=== PATIENT | female | born 2000 | race Caucasian/White ===

== ENCOUNTER 2019-03-19 08:40 | Emergency (ER) | payer OTHER ==
--- NOTE | 2019-03-19 08:53 | ED Physician Documentation ---
History of Present Illness - Stated complaint Stated Complaint: RT SIDE ABD PX N/V/D - Chief complaint Chief Complaint: Abd Pain - History obtained from History obtained from: Patient - Additonal information Additional information: Patient is a previously healthy 18-year-old female presenting with several days of lower and right-sided abdominal pain associated with nausea and vomiting. Patient also reports mild diarrhea. Patient denies fever, urinary changes, new vaginal bleeding or discharge, as well as any vaginal pain. Patient's last menstrual period was normal for her in about 1 month ago. No other improving or worsening factors noted. Review of Systems Constitutional: denies: Fever GI: reports: Abdominal Pain, Nausea, Vomiting, Diarrhea : denies: Dysuria PD PAST MEDICAL HISTORY - Past Medical History Past Medical History: Yes Psych: Depression - Past Surgical History Past Surgical History: No - Allergies Allergies/Adverse Reactions: Allergies Allergy/AdvReac Type Severity Reaction Status Date / Time No Known Drug Allergies Allergy Verified 03/19/19 08:51 PD ED PE NORMAL - Vitals Vital signs reviewed: Yes - General General: Alert and oriented X 3, No acute distress, Well developed/nourished (Tearful, anxious about IV placement) - HEENT HEENT: Atraumatic, Moist mucous membranes, Pharynx benign - Cardiac Cardiac: RRR, No murmur - Respiratory Respiratory: No respiratory distress, Clear bilaterally - Abdomen Abdomen: Normal bowel sounds, Non distended. No: Non tender (Right lower quadrant tenderness consistent with McBurney's point. Negative Ogden sign. Otherwise unremarkable) - Derm Derm: Normal color, Warm and dry, No rash - Extremities Extremities: No deformity, No tenderness to palpate - Neuro Neuro: Alert and oriented X 3, No motor deficit, No sensory deficit - Psych Psych: Normal mood, Normal affect, Other (Tearful and anxious about IV placement) Results - Vitals Vitals: Vital Signs - 24 hr 03/19/19 03/19/19 03/19/19 08:50 08:55 12:10 Temperature 36.6 C Heart Rate 93 62 Respiratory 18 18 18 Rate Blood Pressure 128/79 107/74 O2 Saturation 96 98 03/19/19 13:56 Temperature Heart Rate 88 Respiratory 20 Rate Blood Pressure 114/70 O2 Saturation 98 Oxygen O2 Source Room air - Labs Labs: Laboratory Tests 03/19/19 03/19/19 03/19/19 09:02 09:02 10:45 WBC 5.1 RBC 5.08 Hgb 14.1 Hct 42.8 MCV 84.2 MCH 27.7 MCHC 32.9 RDW 14.7 Plt Count 251 MPV 8.5 Neut # (Auto) 3.6 Lymph # (Auto) 0.7 L [place] # (Auto) 0.6 Eos # (Auto) 0.1 Baso # (Auto) 0.0 Absolute Nucleated RBC 0.00 Nucleated RBC % 0.0 Sodium 138 Potassium 4.0 Chloride 105 Carbon Dioxide 22 Anion Gap 11.0 BUN 7 Creatinine 0.6 Estimated GFR (MDRD) 129 Glucose 101 H Calcium 9.4 Total Bilirubin 0.8 AST 39 ALT 36 Alkaline Phosphatase 75 Total Protein 8.3 H Albumin 4.4 Globulin 3.9 Albumin/Globulin Ratio 1.1 Lipase 28 Urine Color YELLOW Urine Clarity HAZY Urine pH 5.0 Ur Specific [place] 1.025 Urine Protein NEGATIVE Urine Glucose (UA) NEGATIVE Urine Ketones 15 H Urine Occult Blood TRACE-LYSE Urine Nitrite NEGATIVE Urine Bilirubin NEGATIVE Urine Urobilinogen 0.2 (NORMAL) Ur Leukocyte Esterase NEGATIVE Urine RBC 0-5 Urine WBC 0-3 Ur Squamous Epith Cells MANY Squamous H Urine Crystals 11-25 Ca Oxalate Urine Bacteria Many H Urine Mucus Marked Strands Ur Microscopic Review INDICATED Urine Culture Comments NOT INDICATED Urine HCG, Qual NEGATIVE PD MEDICAL DECISION MAKING - ED course Complexity details: reviewed results, re-evaluated patient, considered differential, d/w patient, d/w supply chain consultant ED course: Patient presenting with symptoms concerning for appendicitis. Have lower suspicion for gallbladder disease, pancreatitis, small bowel obstruction, diverticulitis, AAA, renal disease including UTI, but considered. Also have lower suspicion for ovarian other pelvic pathology given patient's lack of complaints to this area, no abnormal vaginal bleeding or other issues, as well as physical exam. Patient started on IV fluids and Zofran. Patient otherwise relatively comfortable did not require pain medications at this time. Patient remained n.p.o. Screening lab work and urinalysis returned relatively unremarkable including negative , no significant leukocytosis, or other concerns. CT imaging did find evidence of abnormal appendix although not acute appendicitis. Wanted to discuss possible admission for observation and further evaluation with general surgery. General surgery unable to speak immediately as he was in the operating room. Patient advised of results and recommendations as well as delay. Patient understanding. Upon discussion with general surgery, he agreed to evaluate patient and admit. Patient also amenable to this plan. Departure - Departure Disposition: [facility] DC/Xfer Clinical Impression: Abdominal pain Qualifiers: Abdominal location: right lower quadrant Qualified Code(s): R10.31 - Right lower quadrant pain
[2019-03-19] MEDS ORDERED: SODIUM CHLORIDE 0.9% 1,000 ML IV ONE ×2 (08:59→12:39)
[2019-03-19] MEDS ORDERED: ONDANSETRON 4 MG/2 ML VIAL IVP STA ×2 (09:00→16:02)
[2019-03-19 09:09] LABS: BASOPHILS % (AUTO) 0.7 %; EOSINOPHILS # (AUTO) 0.1 10^3/uL (0.0-0.7); EOSINOPHILS % (AUTO) 2.1 %; HGB - HEMOGLOBIN 14.1 g/dL (12.0-16.0); LYMPHOCYTES # (AUTO) 0.7 10^3/uL (1.5-3.5); LYMPHOCYTES % (AUTO) 14.2 %; MEAN CORPUSCULAR HEMOGLOBIN 27.7 pg (27.0-31.0); MEAN CORPUSCULAR HGB CONC 32.9 g/dL (32.0-36.0); MEAN CORPUSCULAR VOLUME 84.2 fL (81.0-99.0); MEAN PLATELET VOLUME 8.5 fL (7.9-10.8); MONOCYTES # (AUTO) 0.6 10^3/uL (0.0-1.0); MONOCYTES % (AUTO) 11.7 %; NEUTROPHILS # (AUTO) 3.6 10^3/uL (1.5-6.6); NEUTROPHILS % (AUTO) 71.3 %; PLT - PLATELET COUNT 251 10^3/uL (130-450); RED BLOOD COUNT 5.08 10^6/uL (4.20-5.40); RED CELL DISTRIBUTION WIDTH 14.7 % (12.0-15.0); WHITE BLOOD COUNT 5.1 x10^3/uL (4.8-10.8)
[2019-03-19 09:25] LABS: ALBUMIN 4.4 g/dL (3.2-5.5); ALBUMIN/GLOBULIN RATIO 1.1 (1.0-2.2); BILIRUBIN,TOTAL 0.8 mg/dL (0.2-1.0); CALCIUM 9.4 mg/dL (8.5-10.3); CREATININE 0.6 mg/dL (0.4-1.0); TOTAL PROTEIN 8.3 g/dL (6.7-8.2)
[2019-03-19 11:04] LABS: BILIRUBIN,URINE NEGATIVE (NEGATIVE); GLUCOSE, URINE (UA) NEGATIVE (NEGATIVE); KETONES,URINE (UA) 15 mg/dL (NEGATIVE); LEUKOCYTE ESTERASE, URINE NEGATIVE (NEGATIVE); NITRITE,URINE NEGATIVE (NEGATIVE); OCCULT BLOOD,URINE TRACE-LYSE (NEGATIVE); PROTEIN,URINE NEGATIVE (NEGATIVE); UROBILINOGEN,URINE 0.2 (NORMAL) E.U./dL (NORMAL)
[2019-03-19 11:10] LABS: CLARITY,URINE HAZY (CLEAR); HCG UR QUAL NEGATIVE
[2019-03-19] MEDS ORDERED: IOVERSOL 320 100 ML VIAL IVP ONE ×2 (11:46→12:38)
[2019-03-19 11:55] LABS: BACTERIA,URINE Many /HPF (None Seen); MUCUS,URINE Marked Strands; RBC,URINE 0-5 /HPF (0-5); SQUAMOUS EPITHELIAL CELL,UR MANY Squamous (<= Few)
[2019-03-19 11:56] LABS: CRYSTALS,URINE 11-25 Ca Oxalate /LPF
--- NOTE | 2019-03-19 12:39 | CT Report ---
Reason: RLQ pain, vomiting Procedure Date: 03/19/2019 Accession Number: [id number] / [id number] Procedure: CT - Abdomen/Pelvis W CPT Code: FULL RESULT: EXAM: CT ABDOMEN AND PELVIS EXAM DATE: 03/19/2019 12:00 PM. CLINICAL HISTORY: Right lower quadrant pain, vomiting. COMPARISONS: None. TECHNIQUE: Routine helical CT imaging was performed through the abdomen and pelvis. IV contrast: 100 mL of Optiray 320. Enteric contrast: No. Reconstructions: Coronal and sagittal. In accordance with CT protocol optimization, one or more of the following dose reduction techniques were utilized for this exam: automated exposure control, adjustment of mA and/or KV based on patient size, or use of iterative reconstructive technique. FINDINGS: Lung Bases: Unremarkable. Liver: Normal. No masses. Gallbladder/Bile Ducts: Unremarkable. Spleen: Normal. Pancreas: Normal. Adrenal Glands: Normal. Kidneys: Normal. No masses or hydronephrosis. Peritoneal Cavity/Bowel: Prominent subcentimeter lymph nodes are seen throughout the mesentery, best demonstrated on coronal image 24 series 5. The ascending and proximal descending colon are filled with fluid. The appendix is well visualized with a maximum caliber of 0.8 cm and filled with fluid. While there are no significant surrounding inflammatory changes, absence of fat stranding with surrounding free fluid, the mucosal outline is irregular with discontinuity of the mucosal enhancement as seen on coronal image 28 of series 5 and axial image 53 of series 3. No significant free fluid, free air or bowel obstruction. Pelvic Organs: Right adnexa contains a 2 cm cyst, see image 32 of series 5. Vasculature: No aneurysms or other significant abnormality. Bones: No significant abnormality. Other: None. IMPRESSION: Abnormal appearance of the appendix in the setting of more diffuse mesenteric lymph nodes and fluid within the ascending and descending colon. While the appendix is formally abnormal on imaging, the overall configuration favors a global process such as a viral etiology. Correlation to history, vital signs, white blood cell count and physical examination would be helpful. RADIA
[2019-03-19] MEDS ORDERED: PIPERACILLIN/TAZOBACTAM 3.375 GM in SODIUM CHLORIDE 0.9% MINIBAG 100 ML IV STA (15:28)
--- NOTE | 2019-03-19 15:30 | ED Physician Documentation ---
ED Addendum - Addendum Addendum: 03/19/19 15:29 General surgery evaluated patient in the emergency department and patient chose medical management instead of hospitalization, further monitoring, or surgical intervention. Surgeon feels this is appropriate and that she is a good candidate for such. Patient received Zosyn in the ED and started on clear liquids. She is to be sent home with Augmentin twice daily x7 days. Patient will have follow-up in the surgeon's office in the next several days. Patient prefers this plan.
--- NOTE | 2019-03-19 15:30 | ANESTHESIA ---
Pre-Anesthesia VS, & Labs - Diagnosis Appendicitis - Procedure Lap appendectomy Vital Signs: Temp Pulse Resp BP Pulse Ox 36.6 C 88 20 114/70 98 03/19/19 12:10 03/19/19 13:56 03/19/19 13:56 03/19/19 13:56 03/19/19 13:56 Height 5 ft 4 in Weight (kg) 77.111 kg Body Mass Index 29.2 - Is Patient ?: No - Lab Results Current Lab Results: Laboratory Tests 03/19/19 09:02: Sodium 138, Potassium 4.0, Chloride 105, Carbon Dioxide 22, A nion Gap 11.0, BUN 7, Creatinine 0.6, Estimated GFR (MDRD) 129, Glucose 101 H, Calcium 9.4, Total Bilirubin 0.8, AST 39, ALT 36, Alkaline Phosphatase 75, Total Protein 8.3 H, Albumin 4.4, Globulin 3.9, Albumin/Globulin Ratio 1.1, Lipase 28 03/19/19 09:02: WBC 5.1, RBC 5.08, Hgb 14.1, Hct 42.8, MCV 84.2, MCH 27.7, MCHC 32.9, RDW 14.7, Plt Count 251, MPV 8.5, Neut # (Auto) 3.6, Lymph # (Auto) 0.7 L, [place] # (Auto) 0.6, Eos # (Auto) 0.1, Baso # (Auto) 0.0, Absolute Nucleated RBC 0.00, Nucleated RBC % 0.0 Lab results reviewed: Yes Fish Bones: 03/19/19 09:02 03/19/19 09:02 Home Medications and Allergies Allergies/Adverse Reactions: Allergies Allergy/AdvReac Type Severity Reaction Status Date / Time No Known Drug Allergies Allergy Verified 03/19/19 08:51 Anes History & Medical History - Medical History Smoking Status: Never smoker Exam General: Alert, Oriented x3, Cooperative Plan Anesthesia Type: General (OR prepped and ready for laparoscopic appendectomy, pt elects to use conservative measures for treatment vs surgery at this point) Consent for Procedure(s) Verified and Reviewed: No Code Status: Attempt Resuscitation ASA classification: 2-Mild systemic disease Is this case an emergency?: Yes
--- NOTE | 2019-03-19 15:46 | CONSULTATION NOTE ---
Referring Provider Name of Referring Provider:: Dr. Burnette Consult Date: 03/19/19 Chief Complaint - Chief Complaint Chief Complaint: abd pain History of Present Illness - History Obtained From Records Reviewed: yes History obtained from: pt Exam Limitations: none - History of Present Illness HPI Comment/Other: 18 yo G0 female, LMP 30 days ago with 2 days of lower abd pain, right greater than left, associated nausea, vomiting and nonbloody diarrhea, without fever/chills, melena, BRBPR, hematemesis, previous similar sx, recent respiratory or urinary tract sx. She noted increased discomfort with activity, no anbormal vaginal discharge or bleeding, no hx PID, neg FH appendicitis or GI tumors. She was evaluated with labs which were notable for a WBC of 5K, neg UA, neg test, and an abd/pelvic CT showing mildly dilated fluid filled appendix with mucosal discontinuity and multiple subcm mesenteric lymph nodes and fluid in the ascending colon. A 2 cm right ovarian simple cyst was also noted. Findings were thought to be consistent with either early acute appendicitis or a viral syndrome. Surgical consultation was requested. History - Past Medical History Cardiovascular: reports: None Psych: reports: Depression - Family & Social History Family History Comment/Other: neg for Gi tumors, appendicitis Living arrangement: Other (working and living [place] a [place] [facility]; home is in [place]) Living Situation: With friend(s) - Substance History Use: Uses substance without health or social issues: NONE Meds/Allgy - Home Medications Home Medications: Ambulatory Orders Medication Instructions Recorded Confirmed Escitalopram [Lexapro] 20 mg PO DAILY 03/19/19 03/19/19 - Allergies Allergies/Adverse Reactions: Allergies Allergy/AdvReac Type Severity Reaction Status Date / Time No Known Drug Allergies Allergy Verified 03/19/19 08:51 Review of Systems - Constitutional Constitutional: reports: Weight loss (20 lbs over past 3 months, attributed to diet, exercise) - Respiratory Respiratory: denies: Cough, Sputum production - Gastrointestinal Gastrointestinal: reports: Abdominal pain, Diarrhea, Change in bowel habits, Nausea, Vomiting, Poor appetite. denies: Black stools, Bloody stools, Jerad blood emesis, Coffee grounds emesis - Genitourinary Genitourinary: denies: Dysuria - Musculoskeletal Musculoskeletal: denies: Back pain - Psychiatric Psychiatric: reports: Depression - Hematologic/Lymphatic Hematologic/Lymphatic: denies: Blood clots, Bleeding tendencies - All Other Systems All Other Systems: reports: Reviewed and negative Exam - Vital Signs Reviewed Vital Signs: Yes Vital Signs: Vital Signs x48h Temp Pulse Resp BP Pulse Ox 03/19/19 13:56 88 20 114/70 98 03/19/19 12:10 36.6 C 62 18 107/74 98 03/19/19 08:55 18 03/19/19 08:50 93 18 128/79 96 - Physical Exam General Appearance: positive: Alert, Mild distress Eyes Bilateral: positive: Normal inspection, No scleral icterus ENT: positive: ENT inspection nml, No signs of dehydration Neck: positive: Nml inspection, No JVD. negative: Lymphadenopathy (R), Lymphadenopathy (L) Respiratory: positive: Chest non-tender, No respiratory distress, Breath sounds nml. negative: Wheezes, Rales, Rhonchi Cardiovascular: positive: Regular rate & rhythm, No murmur, No gallop Abdomen: positive: No organomegaly, Nml bowel sounds, No distention, Tenderness (RLQ, LLQ, RUQ, maximal in RLQ with localized rebound tenderness; +Rovsing's; +psoas; neg obturator sign), Rebound. negative: Guarding, Hepatomegaly, Splenomegaly, Mass Skin: positive: Color nml, No rash, Warm, Dry. negative: Cyanosis Extremities: positive: Non-tender, No pedal edema. negative: Calf tenderness Neurologic/Psychiatric: positive: Oriented x3 Conclusion/Plan - Diagnosis Diagnosis: RLQ pain, N/V/D with abn CT of appendix; findings c/w early appenditis and/or viral syndrome. No evidence of complicated appendicitis at this time. - Plan Plan: Advised diagnostic laparoscopy and appendectomy. The alternative of medical management with antibiotic therapy was discussed and pt prefers non operative management at this time. Risks of failure to improve, worsening, improvement with subsequent relapse were discussed with pt who is comfortable with these risks and prefers them to surgical intervention at present. Therefore I recomme nd a dose of 3.375 gm of pip/suzi now and a trial of clear liquids in the ER. If tolerates liquids, then ok to send home on 7 days of Augmentin 875 BID, with f/u in my office in 3 days, and advice to return to the ER if sx worsen or unable to tolerate a liquid diet. Pt is comfortable with this plan. - Lab Results Lab results reviewed: Yes Fish Bones: 03/19/19 09:02 03/19/19 09:02 Other Lab Results: UA, urine preg neg; lft's, lipase, nl - Diagnostic Imaging Results Diagnostic Imaging Results: positive: Final report reviewed, Read independently Diagnostic Imaging Results Comments: See HPI
[2019-03-19 16:52] VITALS: BP 109/73
== END 2019-03-19 16:53 | disposition home or self-care (01) ==
LOC: ED 08:40
DX: R10.31 Right lower quadrant pain (principal); R11.2 Nausea with vomiting, unspecified; R19.7 Diarrhea, unspecified; R93.5 Abnormal findings on diagnostic imaging of other abdominal regions, including retroperitoneum
CPT/HCPCS: 36415; 74177; 80053; 81001; 81025; 83690; 85025; 96361; 96365; 96375; 99283; Q9967; 81003; 87086

== ENCOUNTER 2020-06-26 12:18 | Emergency (ER) | payer OTHER ==
[2020-06-26 12:51] LABS: BASOPHILS % (AUTO) 0.4 %; EOSINOPHILS # (AUTO) 0.2 10^3/uL (0.0-0.7); HGB - HEMOGLOBIN 13.5 g/dL (12.0-16.0); LYMPHOCYTES # (AUTO) 1.4 10^3/uL (1.5-3.5); LYMPHOCYTES % (AUTO) 20.2 %; MEAN CORPUSCULAR HEMOGLOBIN 28.8 pg (27.0-31.0); MEAN CORPUSCULAR HGB CONC 32.1 g/dL (32.0-36.0); MEAN CORPUSCULAR VOLUME 89.7 fL (81.0-99.0); MEAN PLATELET VOLUME 10.4 fL (7.9-10.8); MONOCYTES # (AUTO) 0.5 10^3/uL (0.0-1.0); MONOCYTES % (AUTO) 7.9 %; NEUTROPHILS # (AUTO) 4.6 10^3/uL (1.5-6.6); NEUTROPHILS % (AUTO) 68.2 %; PLT - PLATELET COUNT 289 10^3/uL (130-450); RED BLOOD COUNT 4.68 10^6/uL (4.20-5.40); RED CELL DISTRIBUTION WIDTH 13.8 % (12.0-15.0); WHITE BLOOD COUNT 6.7 x10^3/uL (4.8-10.8)
[2020-06-26 13:06] LABS: ALBUMIN 4.5 g/dL (3.2-5.5); ALBUMIN/GLOBULIN RATIO 1.4 (1.0-2.2); BILIRUBIN,TOTAL 0.6 mg/dL (0.2-1.0); CALCIUM 9.2 mg/dL (8.5-10.3); CREATININE 0.6 mg/dL (0.4-1.0); TOTAL PROTEIN 7.8 g/dL (6.7-8.2)
[2020-06-26 13:17] LABS: BILIRUBIN,URINE NEGATIVE (NEGATIVE); GLUCOSE, URINE (UA) NEGATIVE (NEGATIVE); KETONES,URINE (UA) NEGATIVE (NEGATIVE); LEUKOCYTE ESTERASE, URINE NEGATIVE (NEGATIVE); NITRITE,URINE NEGATIVE (NEGATIVE); OCCULT BLOOD,URINE NEGATIVE (NEGATIVE); PROTEIN,URINE NEGATIVE (NEGATIVE); UROBILINOGEN,URINE 0.2 (NORMAL) E.U./dL (NORMAL)
[2020-06-26 13:19] LABS: CLARITY,URINE CLEAR (CLEAR)
[2020-06-26 13:20] LABS: HCG UR QUAL NEGATIVE
--- NOTE | 2020-06-26 13:46 | ED Physician Documentation ---
PD HPI ABD PAIN - Stated complaint Stated Complaint: ABD PX - Chief complaint Chief Complaint: Abd Pain - History obtained from History obtained from: Patient - History of Present Illness Timing - onset: Today Timing - duration: Hours Quality: Aching Location: RLQ Worsened by: Palpation Associated symptoms: Nausea, Vomiting, Loss of appetite. No: Fever, Hematemesis, Diarrhea, Constipation, Melena, Hematochezia, Dysuria, Hematuria, Chest pain, Weight loss, Vaginal bleeding, Vaginal dc - Additional information Additional information: 19 yo F presents with RLQ abdominal pain since this AM. No fever, chills, vomiting, anorexia, diarrhea, or urinary sx. Ate toast this AM w/o difficulty. No meds attempted. States she had similar sx in the past about a year ago and CT showed a possible appendicitis at that time but inconclusive and so she was sent home on abx and sx resolved, therefore she never had her appendix removed. Review of Systems Constitutional: reports: Reviewed and negative Cardiac: reports: Reviewed and negative Respiratory: reports: Reviewed and negative GI: reports: Abdominal Pain, Nausea, Vomiting. denies: Abdominal Swelling, Constipation, Diarrhea, Hematemesis, Bloody / black stool : reports: Reviewed and negative Skin: reports: Reviewed and negative Musculoskeletal: reports: Reviewed and negative Neurologic: reports: Reviewed and negative PD PAST MEDICAL HISTORY - Past Medical History Cardiovascular: None Psych: Depression - Past Surgical History Past Surgical History: No - Present Medications Home Medications: Ambulatory Orders Medication Instructions Recorded Confirmed Amox/Clav 875/125 [Augmentin] 1 each PO Q12H #14 tablet 03/19/19 Escitalopram [Lexapro] 20 mg PO DAILY 03/19/19 03/19/19 Amox/Clav 875/125 [Augmentin] 1 each PO Q12H #10 tablet 06/26/20 Ondansetron Odt [Zofran] 4 mg TL Q6H PRN #10 tablet 06/26/20 - Allergies Allergies/Adverse Reactions: Allergies Allergy/AdvReac Type Severity Reaction Status Date / Time No Known Drug Allergies Allergy Verified 03/19/19 08:51 - Social History Does the pt smoke?: No Smoking Status: Never smoker Does the pt drink ETOH?: No Does the pt have substance abuse?: No - Immunizations Immunizations are current?: Yes PD ED PE NORMAL - Vitals Vital signs reviewed: Yes - General General: Alert and oriented X 3, No acute distress - HEENT HEENT: Atraumatic, Moist mucous membranes - Cardiac Cardiac: RRR, No murmur, No gallop, No rub - Respiratory Respiratory: No respiratory distress, Clear bilaterally - Abdomen Abdomen: Normal bowel sounds, Soft, Non distended, Other (RLQ ttp w/o guarding, no rebound, no other abd ttp) - Back Back: No CVA TTP - Derm Derm: Normal color, Warm and dry, No rash - Neuro Neuro: Alert and oriented X 3 Eye Opening: Spontaneous Motor: Obeys Commands Verbal: Oriented GCS Score: 15 - Psych Psych: Normal mood, Normal affect Results - Vitals Vitals: Vital Signs - 24 hr 06/26/20 06/26/20 06/26/20 12:25 13:41 15:16 Temperature 36.9 C 36.8 C Heart Rate 82 85 91 Respiratory 16 16 18 Rate Blood Pressure 115/70 122/65 103/68 O2 Saturation 96 99 98 06/26/20 06/26/20 16:30 17:01 Temperature 36.8 C Heart Rate 74 75 Respiratory 20 16 Rate Blood Pressure 116/81 H 122/65 O2 Saturation 98 99 Oxygen O2 Source Room air - Labs Labs: Laboratory Tests 06/26/20 06/26/20 06/26/20 12:44 12:44 13:13 WBC 6.7 RBC 4.68 Hgb 13.5 Hct 42.0 MCV 89.7 MCH 28.8 MCHC 32.1 RDW 13.8 Plt Count 289 MPV 10.4 Neut # (Auto) 4.6 Lymph # (Auto) 1.4 L [place] # (Auto) 0.5 Eos # (Auto) 0.2 Baso # (Auto) 0.0 Absolute Nucleated RBC 0.00 Nucleated RBC % 0.0 Sodium 139 Potassium 3.9 Chloride 103 Carbon Dioxide 26 Anion Gap 10.0 BUN 10 Creatinine 0.6 Estimated GFR (MDRD) 127 Glucose 94 Calcium 9.2 Total Bilirubin 0.6 AST 21 ALT 25 Alkaline Phosphatase 66 Total Protein 7.8 Albumin 4.5 Globulin 3.3 Albumin/Globulin Ratio 1.4 Lipase 28 Urine Color YELLOW Urine Clarity CLEAR Urine pH 6.0 Ur Specific [place] 1.015 Urine Protein NEGATIVE Urine Glucose (UA) NEGATIVE Urine Ketones NEGATIVE Urine Occult Blood NEGATIVE Urine Nitrite NEGATIVE Urine Bilirubin NEGATIVE Urine Urobilinogen 0.2 (NORMAL) Ur Leukocyte Esterase NEGATIVE Ur Microscopic Review NOT INDICATED Urine Culture Comments NOT INDICATED Urine HCG, Qual 06/26/20 13:13 WBC RBC Hgb Hct MCV MCH MCHC RDW Plt Count MPV Neut # (Auto) Lymph # (Auto) [place] # (Auto) Eos # (Auto) Baso # (Auto) Absolute Nucleated RBC Nucleated RBC % Sodium Potassium Chloride Carbon Dioxide Anion Gap BUN Creatinine Estimated GFR (MDRD) Glucose Calcium Total Bilirubin AST ALT Alkaline Phosphatase Total Protein Albumin Globulin Albumin/Globulin Ratio Lipase Urine Color Urine Clarity Urine pH Ur Specific [place] 1.015 Urine Protein Urine Glucose (UA) Urine Ketones Urine Occult Blood Urine Nitrite Urine Bilirubin Urine Urobilinogen Ur Leukocyte Esterase Ur Microscopic Review Urine Culture Comments Urine HCG, Qual NEGATIVE PD MEDICAL DECISION MAKING - ED course Complexity details: reviewed results, re-evaluated patient, considered dif ferential, d/w patient ED course: 19 yo F presented w/ rlq pain but no fever, vomiting, or other symptoms. Her labs are reassuring. Her CT shows possible slight increase in size of appendix but no other definitive signs of appendicitiis. I d/w Dr. Jade and recommended abx for a few days and pt to return if worsening or persistent sx. Pt agreeable to this. Reviewed return precautions in detail including anorexia, fever/chills, increased pain, vomiting, or otherwise worsening sx. Will also refer outpt to surgery as she has had similar sx in the past and therefore may benefit from removal of appendix even if not definitive signs fo appendicitis. Departure - Departure Disposition: 01 Home, Self Care Clinical Impression: Abdominal pain Qualifiers: Abdominal location: right lower quadrant Qualified Code(s): R10.31 - Right lower quadrant pain Condition: Good Instructions: Abdominal Pain Follow-Up: LESTER MIR MD [Provider Admit Priv/Credential] - Prescriptions: Amox/Clav 875/125 [Augmentin] 1 each PO Q12H #10 tablet Ondansetron Odt [Zofran] 4 mg TL Q6H PRN #10 tablet PRN Reason: Nausea / Vomiting Comments: You presented with right lower quadrant pain. Your labs were normal which is reassuring. Your CT scan of the abdomen showed possible slight enlargement of the appendix but no definitive signs of appendicitis. This may be an incidental finding or represent a very early appendicitis. We will discharge you home on antibiotics. If you have no improvement w/ the medication or if at anytime you worsen and develop increased pain, vomiting, fever, or otherwise worsening symptoms, return to the ER as it is possible you have a very early appendicitis. You may take tylenol for pain. Discharge Date/Time: 06/26/20 17:03
[2020-06-26] MEDS ORDERED: IOVERSOL 320 100 ML VIAL IVP ONE ×2 (15:34→15:49)
--- NOTE | 2020-06-26 16:07 | CT Report ---
PROCEDURE: Abdomen/Pelvis W INDICATIONS: RLQ pain r/o appy CONTRAST: IV CONTRAST: Optiray 320 ml: 100 PO CONTRAST: *NO PO CONTRAST TECHNIQUE: After the administration of IV contrast, 5 mm thick sections acquired from the diaphragms to the symp hysis. 5 mm thick coronal and sagittal reformats were acquired. For radiation dose reduction, the f ollowing was used: automated exposure control, adjustment of mA and/or kV according to patient size. COMPARISON: None. FINDINGS: Image quality: Excellent. ABDOMEN: Lung bases: Lung bases are clear. Heart size is normal. Solid organs: Liver and spleen are normal in size and enhancement. Gallbladder is within normal martines its Biliary system is non dilated. Pancreas enhances normally. No adrenal nodules. Kidneys demons trate normal size and enhancement, without hydronephrosis. Peritoneum and bowel: There is no evidence of bowel obstruction. Appendix is visualized in the right lower quadrant abdomen. Proximal appendix measures 8 mm in diameter which is minimally enlarged. No g ross appendiceal wall thickening or periappendiceal fat stranding is seen. No other area of abnormal bowel wall thickening is seen. No free fluid or free air. Nodes and vessels: No retroperitoneal or mesenteric adenopathy by size criteria. Aorta and inferior vena cava are normal in size. Miscellaneous: No ventral hernias. PELVIS: Genitourinary: Bladder wall thickness is normal. Miscellaneous: No inguinal hernias or adenopathy. Bones: No suspicious bony lesions. No vertebral body compression fractures. IMPRESSION: 1. Slight enlargement of proximal appendix without definite CT evidence of acute appendicitis. Early acute appendicitis cannot be entirely excluded. No abscess collection. No free fluid or free air. No other area of abnormal bowel wall thickening. 2. Rest of the exam is unremarkable. Reviewed by: Diego Andrade MD on 06/26/2020 4:05 PM PDT Approved by: Diego Andrade MD on 06/26/2020 4:05 PM PDT Station ID: [id number]
[2020-06-26 17:03] VITALS: BP 122/65
== END 2020-06-26 17:03 | disposition home or self-care (01) ==
LOC: ED 12:18
DX: R10.31 Right lower quadrant pain (principal)
CPT/HCPCS: 36415; 74177; 80053; 81003; 81025; 83690; 85025; 99284; Q9967; 81001; 84702; 87086

== ENCOUNTER 2020-08-01 10:00 | Outpatient (CLI) | payer OTHER ==
[2020-08-01 16:00] LABS: BILIRUBIN,URINE NEGATIVE (NEGATIVE); GLUCOSE, URINE (UA) NEGATIVE (NEGATIVE); KETONES,URINE (UA) NEGATIVE (NEGATIVE); LEUKOCYTE ESTERASE, URINE NEGATIVE (NEGATIVE); NITRITE,URINE NEGATIVE (NEGATIVE); OCCULT BLOOD,URINE NEGATIVE (NEGATIVE); PROTEIN,URINE NEGATIVE (NEGATIVE); UROBILINOGEN,URINE 0.2 (NORMAL) E.U./dL (NORMAL)
[2020-08-01 16:09] LABS: CLARITY,URINE CLEAR (CLEAR)
[2020-08-01 16:28] LABS: BACTERIA,URINE None Seen /HPF (None Seen); RBC,URINE 0-5 /HPF (0-5); SQUAMOUS EPITHELIAL CELL,UR NONE SEEN (<= Few)
== END 2020-08-01 10:01 | disposition home or self-care (01) ==
LOC: LAB.R 10:00
PROVIDERS: ATTEND Emergency Medicine
DX: R10.31 Right lower quadrant pain (principal)
CPT/HCPCS: 81001; 87086

== ENCOUNTER 2020-10-10 18:11 | Day surgery (SDC) | payer SELFPAY ==
[2020-10-10 19:16] LABS: BASOPHILS % (AUTO) 0.4 %; EOSINOPHILS # (AUTO) 0.2 10^3/uL (0.0-0.7); EOSINOPHILS % (AUTO) 2.5 %; HGB - HEMOGLOBIN 13.2 g/dL (12.0-16.0); LYMPHOCYTES # (AUTO) 1.7 10^3/uL (1.5-3.5); MEAN CORPUSCULAR HEMOGLOBIN 28.1 pg (27.0-31.0); MEAN CORPUSCULAR VOLUME 87.8 fL (81.0-99.0); MEAN PLATELET VOLUME 10.9 fL (7.9-10.8); MONOCYTES # (AUTO) 0.5 10^3/uL (0.0-1.0); MONOCYTES % (AUTO) 6.4 %; NEUTROPHILS % (AUTO) 67.3 %; PLT - PLATELET COUNT 310 10^3/uL (130-450); RED BLOOD COUNT 4.69 10^6/uL (4.20-5.40); RED CELL DISTRIBUTION WIDTH 13.4 % (12.0-15.0); WHITE BLOOD COUNT 7.5 x10^3/uL (4.8-10.8)
[2020-10-10 19:21] LABS: BILIRUBIN,URINE NEGATIVE (NEGATIVE); GLUCOSE, URINE (UA) NEGATIVE (NEGATIVE); KETONES,URINE (UA) NEGATIVE (NEGATIVE); LEUKOCYTE ESTERASE, URINE NEGATIVE (NEGATIVE); NITRITE,URINE NEGATIVE (NEGATIVE); OCCULT BLOOD,URINE NEGATIVE (NEGATIVE); PH,URINE 6.5 PH (5.0-7.5); PROTEIN,URINE NEGATIVE (NEGATIVE); UROBILINOGEN,URINE 0.2 (NORMAL) E.U./dL (NORMAL)
[2020-10-10 19:43] LABS: CLARITY,URINE CLEAR (CLEAR); HCG UR QUAL NEGATIVE
[2020-10-10] MEDS ORDERED: IOVERSOL 320 100 ML VIAL IVP ONE ×2 (19:44→20:23)
--- NOTE | 2020-10-10 19:55 | ED Physician Documentation ---
History of Present Illness - Stated complaint Stated Complaint: right sided px - Chief complaint Chief Complaint: Abd Pain - History obtained from History obtained from: Patient - History of Present Illness Timing: Yesterday Pain level max: 6 Pain level now: 5 - Additonal information Additional information: 20-year-old female presents to the emergency department the right lower quadrant abdominal pain. This is occurred twice previously. The first time was in March 2019. Had an abnormal appendix on CT scan, offered laparoscopic appendectomy, patient declined at that time and improved on antibiotics. The second time was June 2020, similar events although not offered an appendectomy at that time. She improved again on antibiotics. The pain occurred again yesterday. Subjective fever and chills last night. Nausea today, no vomiting. No diarrhea. No constipation. No vaginal bleeding or discharge. Denies any possibility of . Worse with movement, better lying still. Review of Systems Ten Systems: 10 systems reviewed and negative Constitutional: reports: Fever, Chills Nose: denies: Rhinorrhea / runny nose, Congestion GI: denies: Vomiting, Constipation, Diarrhea, Hematemesis, Bloody / black stool : denies: Dysuria, Frequency, Hesitancy, Vaginal bleeding, Irregular menses, Now EGA Skin: denies: Rash Musculoskeletal: denies: Neck pain, Back pain Neurologic: denies: Headache PD PAST MEDICAL HISTORY - Past Medical History Past Medical History: Yes Cardiovascular: None Psych: Depression - Past Surgical History Past Surgical History: No - Present Medications Home Medications: Ambulatory Orders Medication Instructions Recorded Confirmed Escitalopram Oxalate [Lexapro] 20 mg PO DAILY 10/10/20 10/10/20 - Allergies Allergies/Adverse Reactions: Allergies Allergy/AdvReac Type Severity Reaction Status Date / Time No Known Drug Allergies Allergy Verified 10/10/20 18:33 - Social History Does the pt smoke?: No Smoking Status: Never smoker Does the pt drink ETOH?: No Does the pt have substance abuse?: No - Immunizations Immunizations are current?: Yes PD ED PE NORMAL - Vitals Vital signs reviewed: Yes - General General: Alert and oriented X 3, No acute distress - HEENT HEENT: Moist mucous membranes - Neck Neck: Supple, no meningeal sign - Cardiac Cardiac: RRR, Strong equal pulses - Respiratory Respiratory: No respiratory distress, Clear bilaterally - Abdomen Abdomen: Soft, Other (Tender to palpation at McBurney's point. No rebound or guarding. Positive Rovsing sign.) - Back Back: No CVA TTP, No spinal TTP - Derm Derm: Warm and dry - Extremities Extremities: No edema, No calf tenderness / cord - Neuro Neuro: Alert and oriented X 3 - Psych Psych: Normal mood, Normal affect Results - Vitals Vitals: Vital Signs - 24 hr 10/10/20 10/10/20 10/10/20 18:22 20:36 21:39 Temperature 37.0 C 36.9 C Heart Rate 76 69 69 Heart Rate [ Brachial] Respiratory 18 18 16 Rate Blood Pressure 130/79 128/59 L 111/77 Blood Pressure [Right Brachial artery] O2 Saturation 100 99 97 10/10/20 22:00 Temperature 36.7 C Heart Rate Heart Rate [ 68 Brachial] Respiratory 18 Rate Blood Pressure Blood Pressure 111/77 [Right Brachial artery] O2 Saturation 99 Oxygen O2 Source Room air - Labs Labs: Laboratory Tests 10/10/20 10/10/20 10/10/20 18:36 18:38 19:32 WBC 7.5 RBC 4.69 Hgb 13.2 Hct 41.2 MCV 87.8 MCH 28.1 MCHC 32.0 RDW 13.4 Plt Count 310 MPV 10.9 H Neut # (Auto) 5.0 Lymph # (Auto) 1.7 Porter # (Auto) 0.5 Eos # (Auto) 0.2 Baso # (Auto) 0.0 Absolute Nucleated RBC 0.00 Nucleated RBC % 0.0 Sodium 138 Potassium 3.9 Chloride 100 L Carbon Dioxide 28 Anion Gap 10.0 BUN 9 Creatinine 0.5 Estimated GFR (MDRD) 156 Glucose 96 Calcium 9.4 Total Bilirubin 0.6 AST 23 ALT 22 Alkaline Phosphatase 74 Total Protein 7.9 Albumin 4.7 Globulin 3.2 Albumin/Globulin Ratio 1.5 Lipase 23 Urine Color YELLOW Urine Clarity CLEAR Urine pH 6.5 Ur Specific [place] 1.015 Urine Protein NEGATIVE Urine Glucose (UA) NEGATIVE Urine Ketones NEGATIVE Urine Occult Blood NEGATIVE Urine Nitrite NEGATIVE Urine Bilirubin NEGATIVE Urine Urobilinogen 0.2 (NORMAL) Ur Leukocyte Esterase NEGATIVE Ur Microscopic Review NOT INDICATED Urine Culture Comments NOT INDICATED Urine HCG, Qual NEGATIVE - Rads (name of study) CT abdomen pelvis Radiology: Prelim report reviewed, EMP read contemporaneously, See rad report PD MEDICAL DECISION MAKING - ED course Complexity details: reviewed results, re-evaluated patient, considered differential, d/w patient ED course: 20-year-old female with right lower quadrant abdominal pain. This the third time this has recurred, she does appear to have an abnormal appendix on her prior 2 CT scans, therefore I contacted Dr. Briscoe, general surgery on-call who recommends a another CT scan today. This scan does show enlargement of the proximal appendix. Her symptoms are consistent with her chronic appendicitis. Does improve with antibiotics, however recurs. Therefore Dr. Briscoe came and evaluated the patient and will plan on taking her to surgery. Zosyn given. IV fluids given. This document was made in part using voice recognition software. While efforts are made to proofread this document, sound alike and grammatical errors may occur. Slight enlargement of the proximal appendix as before, with grossly stable appearance. This is technically indeterminate and could be normal physiologic variation (especially given unchanged ap pearance since the prior study) versus early acute appendicitis. No other inflammatory changes seen. Please correlate with clinical and laboratory data. Elsewhere, no acute abnormality Departure - Departure Disposition: ED Transfer to [facility] Clinical Impression: Appendicitis Qualifiers: Appendicitis type: acute appendicitis Acute appendicitis type: with localized peritonitis Appendicitis gangrene presence: without gangrene Appendicitis perforation presence: without perforation Appendicitis abscess presence: without abscess Qualified Code(s): K35.30 - Acute appendicitis with localized peritonitis, without perforation or gangrene Condition: Stable Discharge Date/Time: 10/10/20 21:50
[2020-10-10 20:07] LABS: ALBUMIN 4.7 g/dL (3.2-5.5); ALBUMIN/GLOBULIN RATIO 1.5 (1.0-2.2); BILIRUBIN,TOTAL 0.6 mg/dL (0.2-1.0); CALCIUM 9.4 mg/dL (8.5-10.3); CREATININE 0.5 mg/dL (0.4-1.0); TOTAL PROTEIN 7.9 g/dL (6.7-8.2)
--- NOTE | 2020-10-10 20:49 | CT Report ---
PROCEDURE: Abdomen/Pelvis W INDICATIONS: RLQ pain CONTRAST: IV CONTRAST: Optiray 320 ml: 100 PO CONTRAST: *NO PO CONTRAST TECHNIQUE: After the administration of intravenous contrast, 5 mm thick sections acquired from the diaphragms to the symphysis. 5 mm thick coronal and sagittal reformats were acquired. For radiation dose reducti on, the following was used: automated exposure control, adjustment of mA and/or kV according to ashlyn ent size. COMPARISON: CT abdomen pelvis dated 06/26/2020. FINDINGS: Image quality: Excellent. ABDOMEN: Lung bases: Lung bases are clear. Heart size is normal. Solid organs: Liver and spleen are normal in size and enhancement. Gallbladder negative Biliary sy stem is non dilated. Pancreas enhances normally. No adrenal nodules. Kidneys demonstrate normal si ze and enhancement, without hydronephrosis. Peritoneum and bowel: Bowel loops demonstrate normal wall thickness and caliber. No free fluid or a ir. There is mild dilatation of the proximal appendix measuring 7 mm however this is grossly unchang ed since the prior study dated 06/26/2020. There is no definite periappendiceal fat stranding. Few non pathologically enlarged right lower quadrant and mesenteric lymph nodes are seen. Nodes and vessels: No retroperitoneal or mesenteric adenopathy by size criteria. Aorta and inferior vena cava are normal in size. Miscellaneous: No ventral hernias. PELVIS: Genitourinary: Bladder wall thickness is normal. Miscellaneous: No inguinal hernias or adenopathy. Bones: No suspicious bony lesions. No vertebral body compression fractures. IMPRESSION: Slight enlargement of the proximal appendix as before, with grossly stable appearance. This is techni andrea indeterminate and could be normal physiologic variation (especially given unchanged appearance since the prior study) versus early acute appendicitis. No other inflammatory changes seen. Please co rrelate with clinical and laboratory data. Elsewhere, no acute abnormality Reviewed by: Christiano Michel MD on 10/10/2020 8:47 PM PST Approved by: Christiano Michel MD on 10/10/2020 8:47 PM PST Station ID: [id number]
[2020-10-10] MEDS ORDERED: ONDANSETRON 4 MG/2 ML VIAL IVP PRN (20:55)
[2020-10-10] MEDS ORDERED: ACETAMINOPHEN 325 MG TABLET PO PRN (20:55)
[2020-10-10] MEDS ORDERED: PIPERACILLIN/TAZOBACTAM 3.375 GM in SODIUM CHLORIDE 0.9% MINIBAG 100 ML IV ONE (20:55)
[2020-10-10] MEDS ORDERED: HYDROmorphone 0.5 MG/0.5 ML SYRINGE IVP PRN (20:55)
[2020-10-10] MEDS: LACTATED RINGERS 1,000 ML IV SCH (21:44)
[2020-10-11] MEDS: LACTATED RINGERS 1,000 ML IV SCH ×2 (07:19→21:29)
[2020-10-11] MEDS ORDERED: PROPOFOL 200 MG/20 ML VIAL IVP ONE (11:35)
[2020-10-11] MEDS ORDERED: fentaNYL 100 MCG/2 ML VIAL ONE ×2 (11:35→12:58)
[2020-10-11] MEDS ORDERED: LIDOCAINE-MPF 2% 5 ML VIAL ONE (11:35)
[2020-10-11] MEDS ORDERED: MIDAZOLAM 2 MG/2 ML VIAL ONE (11:35)
[2020-10-11] MEDS ORDERED: ROCURONIUM 50 MG/5 ML VIAL ONE (11:36)
[2020-10-11] MEDS ORDERED: MORPHINE 2 MG/ML CARPUJECT IVP PRN (11:51)
[2020-10-11] MEDS ORDERED: HYDROmorphone 0.5 MG/0.5 ML SYRINGE IVP PRN ×2 (11:51→13:53)
[2020-10-11] MEDS ORDERED: ePHEDrine 50 MG/ML VIAL IVP PRN (11:51)
[2020-10-11] MEDS ORDERED: NALOXONE 0.4 MG/ML VIAL IVP PRN (11:51)
[2020-10-11] MEDS ORDERED: fentaNYL 100 MCG/2 ML VIAL IVP PRN (11:51)
[2020-10-11] MEDS ORDERED: ONDANSETRON 4 MG/2 ML VIAL IVP PRN ×2 (11:51→13:53)
[2020-10-11] MEDS ORDERED: METOCLOPRAMIDE 10 MG/2 ML VIAL IVP PRN (11:51)
[2020-10-11] MEDS ORDERED: ATROPINE ABBOJECT 1 MG/10 ML SYRINGE IVP PRN (11:51)
--- NOTE | 2020-10-11 11:51 | ANESTHESIA ---
Pre-Anesthesia VS, & Labs - Diagnosis acute appendicitis - Procedure Laparoscopic appendectomy Vital Signs: Temp Pulse Resp BP Pulse Ox 36.5 C 65 16 94/48 L 97 10/11/20 07:42 10/11/20 07:42 10/11/20 07:42 10/11/20 07:42 10/11/20 07:42 Height: 5 ft 4 in Weight (kg): 81.193 kg Body Mass Index: 30.7 BMI Classification: Obese - NPO >8 hours - Is Patient ?: No - Lab Results Current Lab Results: Laboratory Tests 10/10/20 19:32: Sodium 138, Potassium 3.9, Chloride 100 L, Carbon Dioxide 28, Anion Gap 10.0, BUN 9, Creatinine 0.5, Estimated GFR (MDRD) 156, Glucose 96, Calcium 9.4, Total Bilirubin 0.6, AST 23, ALT 22, Alkaline Phosphatase 74, Total Protein 7.9, Albumin 4.7, Globulin 3.2, Albumin/Globulin Ratio 1.5, Lipase 23 10/10/20 18:36: WBC 7.5, RBC 4.69, Hgb 13.2, Hct 41.2, MCV 87.8, MCH 28.1, MCHC 32.0, RDW 13.4, Plt Count 310, MPV 10.9 H, Neut # (Auto) 5.0, Lymph # (Auto) 1.7, Pierce # (Auto) 0.5, Eos # (Auto) 0.2, Baso # (Auto) 0.0, Absolute Nucleated RBC 0.00, Nucleated RBC % 0.0 Lab results reviewed: Yes Fish Bones: 10/10/20 18:36 10/10/20 19:32 Home Medications and Allergies Home Medications: Ambulatory Orders Escitalopram Oxalate [Lexapro] 20 mg PO DAILY 10/10/20 Active Medications Acetaminophen (Acetaminophen 325 Mg Tablet) 650 mg PO Q6H PRN PRN Reason: Pain or Fever > 38C (100.4F) Last Admin: 10/11/20 08:06 Dose: 650 mg Documented by: Hydromorphone HCl (Hydromorphone 0.5 Mg/0.5 Ml Syringe) 0.5 mg IVP Q2H PRN PRN Reason: PAIN Last Admin: 10/10/20 21:12 Dose: 0.5 mg Documented by: Lactated Ringer's (Lr) 1,000 mls @ 100 mls/hr IV .Q10H DARREL Last Admin: 10/11/20 07:19 Dose: 100 mls/hr Documented by: Ondansetron HCl (Ondansetron 4 Mg/2 Ml Vial) 4 mg IVP Q6H PRN PRN Reason: Nausea / Vomiting Last Admin: 10/10/20 21:10 Dose: 4 mg Documented by: Escitalopram Oxalate [Lexapro] 20 mg PO DAILY 10/10/20 Allergies/Adverse Reactions: Allergies Allergy/AdvReac Type Severity Reaction Status Date / Time No Known Drug Allergies Allergy Verified 10/10/20 18:33 Anes History & Medical History - Anesthetic History Anesthesia Complications: reports: No previous complications Family history of Anesthesia Complications: Denies Family history of Malignant Hyperthermia: Denies - Medical History Cardiovascular: reports: None Pulmonary: reports: None Gastrointestinal: reports: None Urinary: reports: None Neuro: reports: None Musculoskeletal: reports: None Endocrine/Autoimmune: reports: None Smoking Status: Never smoker Psychosocial: reports: No issues indicated History of Cancer?: No Exam General: Alert, Oriented x3, Cooperative Dental: WNL Mouth Opening: Greater than 4 Fingerbreadths Neck Mobility: Normal Mallampati classification: II Thyromental Distance: 4-6 cm Respiratory: Lungs clear, Normal breath sounds, No respiratory distress Cardiovascular: Regular rate Neurological: Normal gait, Normal speech Mental/Cognitive Status: Alert/Oriented X3, Normal for patient Cognitive Status: Within normal limits Plan Anesthesia Type: General Consent for Procedure(s) Verified and Reviewed: Yes Code Status: Attempt Resuscitation ASA classification: 1-Healthy patient Is this case an emergency?: No
--- NOTE | 2020-10-11 11:54 | SURGERY HX AND PHYSICAL(T) ---
Surgical History & Physical - Chief Complaint/HPI Chief Complaint: Recurrent right lower quadrant pain History of Present Illness: 20-year-old female presenting for her third episode of right lower quadrant pain that historically had been included for acute appendicitis and its differential. Previous to time she was offered appendectomy but deferred. She was treated with antibiotics with ultimate improvement. She has no associated diarrhea, no sick contacts, and no chronic medical problems. She denies any family or personal history of inflammatory bowel disease. She records regular bowel movements. She has no prior abdominal surgical history. She has never undergone colonoscopy. ER called for consultation by phone to ask whether repeat imaging was indicated given the previous 2 studies revealed early of acute appendicitis however given the time interval since I recommended that we proceed. Imaging again revealed abnormality and patient was called for surgical consultation. - PMH/PSH/Social Hx Does the pt have a hx of MRSA?: No Cardiovascular: None Psychiatric: Depression Smoking Status: Never smoker Does the pt drink ETOH?: No Does the pt have substance abuse?: No - Home Meds and Allergies Home Medications: Escitalopram Oxalate [Lexapro] 20 mg PO DAILY 10/10/20 Allergies/Adverse Reactions: Allergies Allergy/AdvReac Type Severity Reaction Status Date / Time No Known Drug Allergies Allergy Verified 10/10/20 18:33 - Review of Systems Constitutional: Fatigue, Fever, Chills, Malaise Gastrointestinal: Abdominal pain - Vital Signs Heart Rate: 69 Blood Pressure: 111/77 Temperature: 36.5 C Respiratory Rate: 16 O2 Saturation: 97 Weight (kg): 81.193 kg Height: 1.63 m - Physical Exam General Appearance: positive: No acute distress, Alert Eyes Bilatera: positive: Normal inspection, PERRL, EOMI ENT: positive: ENT inspection nml Neck: positive: Nml inspection Respiratory: positive: Chest non-tender, No respiratory distress, Breath sounds nml. negative: Wheezes, Rales, Rhonchi Cardiovascular: positive: Regular rate & rhythm Abdomen: positive: No distention, Tenderness. negative: Guarding, Rebound Back: positive: Nml inspection Extremities: positive: Non-tender, Full ROM, Nml appearance Neurologic/Psychiatric: positive: Oriented x3, CN's nml (2-12), Motor nml, Sensation nml, Mood/affect nml - Patient Review Patient Review: Problems were reviewed with the patient during this visit. Medications were reviewed with the patient during this visit. Allergies were reviewed this patient during this visit. Pertinent Tests Reviewed: All pertitent test for this patient were reviewed. - Assessment & Plan Assessment and Plan: 20-year-old female presenting with acute appendicitis with no comorbid states. No signs of inflammatory bowel disease. Recurrent presentation; this is her third visit to the emergency room with imaging similar as per above. CT imaging consistent with early acute appendicitis. Patient has deferred operative intervention historically favoring antibiotics, however extensive discussion given the persistence and episodic nature of her symptomatology together with imaging findings has convinced her that proceeding with appendectomy will at the least remove this from future differential and optimistically address her chronic recurrent abdominal pain. Thus plan going forward is as follows: 1. Bowel rest, IV fluid resuscitation, IV antibiotics. 2. Planned diagnostic laparoscopy, laparoscopic appendectomy, other indicated procedures. Patient counseled of the risk associated with operative intervention including but not limited to conversion to open procedure, injury to local structures, and anesthesia risks of heart attack, stroke, . 3. Postoperative care under observation status with continued IV antibiotics. CT abdomen pelvis impression: Slight enlargement of the proximal appendix as before, with grossly stable appearance. This is technically indeterminate and could be normal physiologic variation (especially given unchanged appearance since the prior study) versus early acute appendicitis. No other inflammatory changes seen. Please correlate with clinical and laboratory data. Elsewhere no acute abnormality.
[2020-10-11] MEDS ORDERED: BUPIVACAINE 0.5% PF 30 ML VIAL ONE (12:00)
[2020-10-11] MEDS ORDERED: LACTATED RINGERS 1,000 ML IV SCH (12:00)
[2020-10-11] MEDS ORDERED: LIDOCAINE 2%-EPI 1:100000 20 ML MDV ONE (12:00)
[2020-10-11] MEDS ORDERED: BUPIVACAINE 0.5% PF 30 ML VIAL INFIL ONE ×2 (12:04→13:23)
[2020-10-11] MEDS ORDERED: LIDOCAINE 2%-EPI 1:100000 20 ML MDV SUBQ ONE ×2 (12:06→13:23)
[2020-10-11] MEDS ORDERED: GLYCOPYRROLATE 1 MG/5 ML VIAL ONE (12:30)
[2020-10-11] MEDS ORDERED: DEXAMETHASONE 4 MG/ML VIAL ONE (12:37)
[2020-10-11] MEDS ORDERED: ONDANSETRON 4 MG/2 ML VIAL ONE (12:37)
[2020-10-11] MEDS ORDERED: NEOSTIGMINE 1 MG/1 ML 10 ML MDV ONE (13:10)
[2020-10-11] MEDS ORDERED: KETOROLAC 30 MG/ML VIAL ONE (13:12)
[2020-10-11] MEDS ORDERED: LACTATED RINGERS 900 ML IV ONE (13:36)
[2020-10-11] MEDS ORDERED: oxyCODONE 5 MG TABLET PO PRN (13:53)
[2020-10-11] MEDS: PIPERACILLIN/TAZOBACTAM 3.375 GM in SODIUM CHLORIDE 0.9% MINIBAG 100 ML IV SCH ×3 (14:20→23:43)
--- NOTE | 2020-10-11 14:21 | OPERATIVE REPORT ---
Operative Report - General Procedure Date: 10/11/20 Planned Procedure: 1. Diagnostic laparoscopy 2. Laparoscopic appendectomy 3. Lysis of adhesions 4. Abdominal washout 5. Open umbilical hernia repair Pre-Op Diagnosis: Recurrent abdominal pain, early appendicitis. Procedure Performed: 1. Diagnostic laparoscopy 2. Laparoscopic appendectomy 3. Lysis of adhesions 4. Abdominal washout 5. Open umbilical hernia repair Post Op Diagnosis: Same, nonsuppurative, nonperforated early tip appendicitis with no feculent - Procedure Note Primary Surgeon: Rachna Secondary Surgeon: Ashok Anesthesia Provider: Dwain Anesthesia Technique: General ET tube, Local Pathology: Appendix Estimated Blood Loss (mL): 5 Drain/Tube Type: Other (None) Indications: See EMR/H&P. Findings: 1. Right lower quadrant adhesions 2. Tip appendicitis at the distal half of the length of the appendix 3. No suppuration, nonperforated, neither feculent nor purulent peritonitis 4. Umbilical hernia, s/p primary repair 5. Pelvic structures were normal including bilateral adnexal structures and uterus 6. Gallbladder normal as well Complications: None - Other Other Information/Narrative: OPERATIVE PROCEDURE: The patient was taken to the operating room, placed supine on the operating table. The patent was already obtained tor informed consent which was documented in the patients permanent medical record The patient was induced for general endotracheal anesthesia. The patient was positioned, off l oaded and padded at all pressure points. The patient was placed for a Downing catheter and tucked for the left arm. The patient was prepped and draped in the usual sterile fashion. The patient was called for a time out which was agreed to all in the room. Open Garcia technique was performed through umbilicus and umbilical trocar was placed. This was achieved with a circumlinear humaira-umbilical incision. This is taken through the subcutaneous fat, the umbilical stalk was dissected off and obvious hernia defect was appreciated. This was done without any injury to the umbilical skin. That benton defect was enlarged and accommodated Garcia trocar without any complication. Insufflation was commenced which the patient tolerated to 15 mmHg well with no complication. Additional trocars were placed suprapubic and left lower quadrant under direct laparoscopic vision. At this time the patient was placed in Trendelenburg position with right side up and we proceeded to isolate the cecum which was densely adhered to the sidewall. Laparoscopic adhesiolysis was performed with countertraction and the laparoscopic Bovie electrocautery without any complication or inadvertent injury. The appendix was continued to be mobilized and thereafter we achieved mobilization medially taking care to note the location of the ureter which was protected and identified throughout the entirety at this case especially given the extent of the patients inflammatory changes. The appendix was nonperforated, was not suppurative, however it was inflamed at the tip from the distal half. There was neither purulent nor feculent peritonitis. Ultimately the cecum was isolated free, and the appendix was thereafter completely mobilized off the abdominal and pelvic sidewall. At this time there were dense adhesions noted of the appendix to the ascending colon and cecum and this required careful dissection as well, both blunt and also using the suction principal librarian and laparoscopic electrocautery. At this time a [place] was used to dissect the cecal-appendiceal junction and thereafter using a ENDOGIA linear cutting stapler, the appendix was divided at the base to include portion at the cecum. The ileocecal valve was identified and protected throughout with no involvement. The right ureter was identified and protected throughout. At this time, we continued to mobilize the appendix off the ascending colon and caecum making sure there was no inadvertent injury to the ascending colon and the cecum which was again densely adhered to the appendix. This was performed with great care using blunt as well as laparoscopic electrocautery and countertraction as well as suction principal librarian and hydro-dissection and ultimately isolated and dissected free the appendix. The mesoappendix was divided using a laparoscopic Endo KENDALL linear cutting stapler 60 mm load. This was achieved without any complication hemostasis was optimized with diligent Bovie electrocautery laparoscopic. The appendix was placed into an Endo Catch bag for control of any spillage. The appendiceal staple line and mesoappendix staple line and ligature were evaluated and hemostatic. At this time, we extensively irrigated the abdomen with greater than 2 liters of sterile saline and aspirated clear. Because of the recurrent chronic symptoms, we evaluated the patient's pelvic structures and noted bilateral normal adnexal anatomy with no cysts or occult ovarian pathology. The patient had a normal uterus as well. The gallbladder was also evaluated and was without any occult pathology as well as the liver. At this time all trochars, secondary, were removed under direct laparoscopic visualization with no consequent bleeding. We removed the Garcia trocar, passed the specimen off for permanent pathology. We closed the umbilical defect with several [id number]'s of 0 Vicryl, and performed umbilicoplasty simultaneous. A mixture of quarter percent Marcaine and 2% lidocaine were instilled within the wounds. All skin and subcutaneous tissue was reapproximated with a subcuticular of 4-0 Monocryl. Wounds were dressed with Dermabond. I was present for the entirety of this operative intervention patient tolerated procedure well which is no complication. All counts were sponges needles and instruments were correct at the conclusion of this operative case.
--- NOTE | 2020-10-11 14:22 | ANESTHESIA POST OP EVALUATION ---
Anesthesia Post Eval - Post Anesthesia Eval Vitals: Last Vital Signs Temp 36.8 C 10/11/20 14:00 Pulse 72 10/11/20 14:00 Resp 14 10/11/20 14:00 BP 129/72 10/11/20 14:00 Pulse Ox 99 10/11/20 14:00 CV Function Including HR & BP: positive: Stable Pain Control: positive: Satisfactory Nausea & Vomiting: positive: Negative Mental Status: positive: Baseline Respiratory Status: Airway Patent Hydration Status: Satisfactory Anesthesia Complications: positive: None
[2020-10-11] MEDS ORDERED: PHENOL THROAT SPRAY 177 ML MM PRN (14:25)
[2020-10-11] MEDS: BENZOCAINE/MENTHOL LOZENGE MM PRN (14:39)
[2020-10-11] MEDS: KETOROLAC 30 MG/ML VIAL IVP SCH ×2 (17:41→23:43)
[2020-10-11] MEDS ORDERED: ACETAMINOPHEN 1,000 MG/100 ML 100 ML IV SCH (18:00)
[2020-10-11] MEDS: polyethylene glycoL 3350 17 GM PACKET PO SCH (20:33)
[2020-10-11] MEDS: DOCUSATE SODIUM 100 MG CAPSULE PO SCH (20:33)
[2020-10-12] MEDS: ACETAMINOPHEN 1,000 MG/100 ML 100 ML IV SCH ×2 (02:27→08:02)
[2020-10-12] MEDS: KETOROLAC 30 MG/ML VIAL IVP SCH ×2 (05:40→11:37)
[2020-10-12] MEDS: PIPERACILLIN/TAZOBACTAM 3.375 GM in SODIUM CHLORIDE 0.9% MINIBAG 100 ML IV SCH ×2 (05:40→11:38)
[2020-10-12] MEDS: polyethylene glycoL 3350 17 GM PACKET PO SCH (08:01)
[2020-10-12] MEDS: DOCUSATE SODIUM 100 MG CAPSULE PO SCH (08:02)
[2020-10-12] MEDS: BENZOCAINE/MENTHOL LOZENGE MM PRN (08:02)
[2020-10-12] MEDS: LACTATED RINGERS 1,000 ML IV SCH ×2 (08:03→11:38)
--- NOTE | 2020-10-12 15:07 | Discharge Plan ---
Discharge Plan Problem Reviewed?: Yes Disposition: Home, Self Care Condition: Good Prescriptions: oxyCODONE [Roxicodone] 5 mg PO Q4HR PRN #24 tablet PRN Reason: Pain Docusate Sodium 100Mg Capsule [Colace 100Mg Capsule] 100 mg PO BID #60 capsule polyethylene glycoL 3350 [Miralax] 17 gm PO BID #30 packet Diet: Soft Activity Restrictions: Activity as Tolerated Shower Restrictions: No Driving Restrictions: Yes (No driving while taking narcotic) Weight Bearing: Full Weight Instruction Topics: Appendectomy Laparoscopic Dc, Appendicitis, Appendectomy After, Umbilical Hernia Repair After Ch Assessment: Subjective Postoperative day #1 status post laparoscopic appendectomy. Patient with multiple presentations for acute tip appendicitis. Historically treated with antibiotics. Underwent above listed procedure along with open umbilical hernia repair. No acute complaints overall feels better. Positive flatus Objective Afebrile hemodynamically acceptable General Appearance: positive: No acute distress Eyes Bilateral: positive: Normal inspection ENT: positive: ENT inspection nml Neck: positive: Nml inspection Respiratory: positive: Chest non-tender, No respiratory distress, Breath sounds nml. negative: Wheezes, Rales, Rhonchi Cardiovascular: positive: Regular rate & rhythm Abdomen: positive: No distention, Other. negative: Guarding, Rebound Extremities: positive: Non-tender, Full ROM, Nml appearance Neurologic/Psychiatric: positive: Oriented x3, CN's nml (2-12) Abdomen soft nontender nondistended no rebound no guarding wounds clean dry and intact no palpable hernias Impression/Plan Postop day #1 status post above listed procedure, laparoscopic appendectomy with open umbilical hernia repair as well as adhesiolysis, please see operative report. Appropriate for discharge. Positive return of bowel function. Plan follow-up. Discharge instructions given. Patient advised to call or present with any worrisome symptoms or other concerns. Nonperforated, nonsuppurative appendicitis with no need for antibiotics. Additional Instructions or Follow Up instructions: DISCHARGE INSTRUCTIONS TEMPLATE: No heavy lifting, pushing, or pulling. Stairs are allowed, no strenuous/exertional activities. 5-10lbs weight carrying limit (i.e. gallon of milk) If provided, abdominal binder while out of bed and while ambulating. Call or proceed to clinic/ER for fevers, severe pain, nausea, vomiting, inability to pass flatus/stool, bleeding, wound redness/discharge, weakness, excessively loose stool/diarrhea, or for any other reasonably worrisome symptom or concern. Soft diet, no raw vegetables, avoid high fiber foods. Colace 100mg by mouth twice to three times daily while taking narcotic pain medication. If no bowel movement in 24-48hr, may take 17g Miralax in 8oz water twice daily until bowel movement. May shower, no submersive bathing. Follow up in clinic in 2-4 weeks for wound check and staple removal. No driving while taking narcotic pain medications. Follow up with primary care provider and/or medical subspecialist following discharge as well. Patient not allowed to drive self today or within 24 hours of surgery. No Smoking: If you smoke, Please STOP! Call for help. Follow-up with: Jean Pierre Briscoe MD [Provider Admit Priv/Credential] -
[2020-10-12 15:13] VITALS: BP 98/52
--- OUTSIDE RECORDS SUMMARY | 2020-10-15 01:47 | EXTERNAL MEDICAL SUMMARY RPT | Continuity of Care Document ---
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 Problems date description facility 2019-03-19 08:40 RIGHT LOWER QUADRANT PAIN [facility] 2019-03-19 08:40 NAUSEA [facility]ITING, [facility] UNSPECIFIED 2019-03-19 08:40 ABN FINDINGS ON DX IMAGING OF [facility] RETROPERITON 2019-03-19 08:40 DIARRHEA, UNSPECIFIED [facility] 2020-06-26 12:18 RIGHT LOWER QUADRANT PAIN [facility] 2020-08-01 00:00 RIGHT LOWER QUADRANT PAIN [facility] 2020-08-01 00:00:00 Nausea with vomiting [facility] [place] 2020-08-01 00:00:00 Abdominal pain, right lower Walk-In [facility] Primary Care & quadrant Ancillary Services [place] 2020-08-01 00:00:00 Urinalysis with Microscopic Walk[facility]In [facility] Primary Care & Exam, Culture in Indicated Ancillary Ser vices [place] 2020-08-01 00:00:00 Nausea with vomiting, [facility] Primary Care & unspecified Ancillary Services [place] 2020-08-01 00:00:00 Alcohol use Walk-In Clinic [facility] Care & Ancillary Services [place] 2020-08-01 00:00:00 Right lower quadrant pain [facility] 2020-08-01 00:00:[facility] 2020-08-01 00:00:00 Never smoker [facility] 2020-08-01 10:00 [facility] 2020-08-26 00:00:00 TSH WITH REFLEX TO FT4 [facility] 2020-08-26 00:00:00 Depressive disorder, not [facility] elsewhere classified [facility] 2020-08-26 00:00:00 Migraine, unspecified, without [facility] mention of intractable migraine, [facility] without mention of status migrainosus 2020-08-26 00:00:00 Screening for thyroid disorders [facility] Primary Care [facility] 2020-08-26 00:00:[facility] unspecified endocrine, [facility] nutritional, metabolic, and immunity disorders 2020-08-26 00:00:00 [facility] unspecified deficiency anemia [facility] 2020-08-26 00:00:00 COMPREHENSIVE METABOLIC PANEL [facility] 2020-08-26 00:00:00 CBC [facility]Diff[facility] 2020-08-26 00:00:00 39702 - OV New, Detailed [facility] Primary [facility] 2020-08-26 00:00:00 Major depressive disorder, [facility] single episode, unspecified [facility] 2020-08-26 00:00:00 Migraine, unspecified, not [facility] intractable, without status [facility] migrainosus 2020-08-26 00:00:00 Unspecified ovarian cyst, [facility] unspecified side [facility] 2020-08-26 00:00:00 Encounter for screening for [facility] diseases of the blood and [facility] blood-forming organs and certain disorders involving the immune mechanism 2020-08-26 00:00:00 Encounter for screening for [facility] other metabolic disorders [facility] 2020-08-26 00:00:00 Encounter for screening for [facility] other suspected endocrine [facility] disorder 2020-08-26 00:00:00 Thyroid disorder screening [facility] 2020-08-26 00:00:00 [facility] 2020-08[facility]:00:00 Chronic depression [facility] 2020-08-26 00:00:00 Tobacco use and exposure [facility] Primary Care [facility] 2020-08-26 00:00:00 [facility] 2020-08-26 00:00:00 Endocrine/metabolic screening [facility] Primary Care [facility] 2020-08-26 00:00:00 [facility] 2020-08-26 00:00:00 Feeling down, depressed, [facility] hopeless? [facility] 2020-08-26 00:00:00 Patient Health Questionnaire 2 [facility] Primary Care item (PHQ2) total score [facility] 2020-08-26 00:00:00 [facility] 2020-08-26 00:00:00 Total [facility]? [facility] 2020-08-26 00:00:[address] [facility] Allergies date description facility CIPROFLOXACIN [facility] [place] LISINOPRIL [facility] [place] NO KNOWN ENVIRONMENTAL ALLERGIES [facility] PENICILLINS [facility] [place] NO KNOWN ALLERGIES [facility] Medic [facility] NO ALLERGY INFORMATION AVAILABLE Merged with [facility] NO KNOWN ALLERGIES [facility] Medic [facility] JUNIPER TAR [facility] [place] No Known Drug Allergies [facility] Medications date description facility 2020-08-01 00:00:00 null Walk-In Clinic [facility] Care & Ancillary Services [place] 2020-08-01 00:00:00 null [facility]-In Clinic [facility] Care & Ancillary Services [place] 2020-08-01 00:00:00 MECLIZINE HCL Walk-In Clinic [facility] Care & Ancillary Services [place] 2020-08-01 00:00:00 MECLIZINE HCL [facility]In Clinic [facility] Care & Ancillary Services [place] 2020-08-01 00:00:00 null [facility] 2020-08-01 00:00:00 null [facility] 2020-08-01 00:00:00 MECLIZINE HCL [facility] 2020-08-01 00:00:00 MECLIZINE HCL [facility] 2020-08-26 00:00:00 null [facility] 2020-08-26 00:00:00 null [facility] 2020-08-26 00:00:00 SUMATRIPTAN SUCCINATE [facility] 2020-08-26 00:00:00 SUMATRIPTAN SUCCINATE [facility] Procedures date description facility 2020-08-01 00:00:00 POC URINALYSIS DIP [facility]-In Clinic [facility] Care & Ancillary Services [place] date description facility 2020-08-01 00:00:00 POC HCG [facility] Care & Ancillary Services [place] date description facility 2020-08-01 00:00:[address] [facility] Care & Ancillary Services [place] date description facility 2020-08-01 00:00:00 POC URINALYSIS DIP [facility] date description facility 2020-08-01 00:00:00 POC HCG [facility] date description facility 2020-08-01 00:00:00 [facility] Results Social History date description facility 2020-08-01 00:00:00 Never smoker [facility] date description facility 2020-08-26 00:00:00 Never smoker [facility] Social History date description facility 2020-08-01 00:00:00 Never smoker [facility] date description facility 2020-08-26 00:00:00 Never smoker [facility] date description facility [phone]
--- OUTSIDE RECORDS SUMMARY | 2020-10-15 01:48 | EXTERNAL MEDICAL SUMMARY RPT | Continuity of Care Document ---
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 Problems date description facility 2019-03-19 08:40 RIGHT LOWER QUADRANT PAIN [facility] 2019-03-19 08:40 NAUSEA [facility]OMITING, [facility] UNSPECIFIED 2019-03-19 08:40 ABN FINDINGS ON DX IMAGING OF [facility] RETROPERITON 2019-03-19 08:40 DIARRHEA, UNSPECIFIED [facility] 2020-06-26 12:18 RIGHT LOWER QUADRANT PAIN [facility] 2020-08-01 00:00 RIGHT LOWER QUADRANT PAIN [facility] 2020-08-01 00:00:00 Nausea with vomiting [facility] [place] 2020-08-01 00:00:00 Abdominal pain, right lower [facility] Primary Care & quadrant Ancillary Services [place] 2020-08-01 00:00:00 Urinalysis with Microscopic [facility] Primary Care & Exam, Culture in Indicated Ancillary Ser vices [place] 2020-08-01 00:00:00 Nausea with vomiting, [facility] Primary Care & unspecified Ancillary Services [place] 2020-08-01 00:00:00 Alcohol use [facility] Care & Ancillary Services [place] 2020-08-01 00:00:00 Right lower quadrant pain [facility] 2020-08-01 00:00:00 [facility]:00 [facility] 2020-08-01 00:00:00 Never smoker [facility] 2020-08-01 10:00 RIGHT LOWER [facility]ADRANT PAIN [facility] 2020-08-26 00:00:00 TSH WITH REFLEX TO FT4 [facility] 2020-08-26 00:00:00 Depressive disorder, not [facility] elsewhere classified [facility] 2020-08-26 00:00:00 Migraine, unspecified, without [facility] of intractable [facility], [facility] without mention of status migrainosus 2020-08-26 00:00:00 Screening for thyroid disorders [facility] Primary Care [facility] 2020-08-26 00:00:00 [facility] unspecified endocrine, [facility] nutritional, metabolic, and immunity disorders 2020-08-26 00:00:00 [facility] unspecified deficiency anemia [facility] 2020-08-26 00:00:00 COMPREHENSIVE METABOLIC PANEL [facility] 2020-08-26 00:00:00 CBC [facility]Diff[facility] 2020-08-26 00:00:00 [id number] - OV New, Detailed [facility] 2020-08-26 00:00:00 Major depressive disorder, [facility] Primary Care single episode, unspecified [facility] 2020-08-26 00:00:00 Migraine, unspecified, not [facility] Primary Care intractable, without status [facility] migrainosus 2020-08-26 00:00:00 Unspecified ovarian cyst, [facility] unspecified side [facility] 2020-08-26 00:00:00 Encounter for screening for [facility] diseases of the blood and [facility] blood-forming organs and certain disorders involving the immune mechanism 2020-08-26 00:00:00 Encounter for screening for [facility] other metabolic disorders [facility] 2020-08-26 00:00:00 Encounter for screening for [facility] other suspected endocrine [facility] disorder 2020-08-26 00:00:00 Thyroid disorder screening [facility] Primary Care [facility] 2020-08-26 00:00:00 [facility]:00:00 [facility] 2020-08-26 00:00:00 Tobacco use and exposure [facility] Primary Care [facility] 2020-08-26 00:00:00 [facility] 2020-08-26 00:00:00 Endocrine/metabolic screening [facility] Primary Care [facility] 2020-08-26 00:00:00 [facility] 2020-08-26 00:00:00 Feeling down, depressed, [facility]? [facility] 2020-08-26 00:00:00 Patient Health Questionnaire 2 [facility] Primary Care item (PHQ2) total score [facility] 2020-08-26 00:00:00 [facility] 2020-08-26 00:00:00 Total [facility]? [facility] 2020-08-26 00:00:00 Cyst of ovary [facility] Allergies date description facility CIPROFLOXACIN [facility] [place] LISINOPRIL [facility] [place] NO KNOWN ENVIRONMENTAL ALLERGIES formerly [facility] PENICILLINS [facility] [place] NO KNOWN ALLERGIES [facility] Medic [facility] NO ALLERGY INFORMATION AVAILABLE formerly [facility] NO KNOWN ALLERGIES [facility] Medic [facility] JUNIPER TAR [facility] [place] No Known Drug Allergies [facility] Medications date description facility 2020-08-01 00:00:00 null [facility] Care & Ancillary Services [place] 2020-08-01 00:00:00 null [facility] Services [place] 2020-08-01 00:00:00 MECLIZINE HCL [facility] & [facility]illary Services [place] 2020-08-01 00:00:00 MECLIZINE HCL [facility] Care & Ancillary Services C [place] 2020-08-01 00:00:00 null [facility] 2020-08-01 00:00:00 null [facility] 2020-08-01 00:00:00 MECLIZINE HCL [facility] 2020-08-01 00:00:00 MECLIZINE HCL [facility] 2020-08-26 00:00:00 null [facility] 2020-08-26 00:00:00 null [facility] 2020-08-26 00:00:00 SUMATRIPTAN SUCCINATE [facility] 2020-08-26 00:00:00 SUMATRIPTAN SUCCINATE [facility] [place] Procedures date description facility 2020-08-01 00:00:00 POC URINALYSIS DIP [facility] Care & Ancillary Services [place] date description facility 2020-08-01 00:00:00 POC HCG [facility] [place] date description facility 2020-08-01 00:00:00 [facility] [place] date description facility 2020-08-01 00:00:00 POC URINALYSIS DIP [facility] [place] [place] [facility] date description facility 2020-08-01 00:00:00 POC HCG [facility] [place] [place] [facility] date description facility 2020-08-01 00:00:00 [facility] [place] [place] [facility] Results Social History date description facility 2020-08-01 00:00:00 Never smoker [facility] [place] [place] [facility] date description facility 2020-08-26 00:00:00 Never smoker [facility] [place] Social History date description facility 2020-08-01 00:00:00 Never smoker [facility] [place] [place] [facility] date description facility 2020-08-26 00:00:00 Never smoker [facility] [place] date description facility [phone]
== END 2020-10-12 15:45 | disposition home or self-care (01) ==
LOC: ED 18:11 → SDS 20:56 → MS2 21:16 → SDS 10-12 15:45
PROVIDERS: ATTEND Surgery
PROC: 0DTJ4ZZ Resection of Appendix, Percutaneous Endoscopic Approach (ICD-10-PCS; principal; 2020-10-11 11:38)
DX: K35.80 Unspecified acute appendicitis (principal); K66.0 Peritoneal adhesions (postprocedural) (postinfection); K42.9 Umbilical hernia without obstruction or gangrene; E66.9 Obesity, unspecified; Z68.30 Body mass index [BMI] 30.0-30.9, adult
CPT/HCPCS: 44970; 74177; 80053; 81003; 81025; 83690; 85025; 96365; 96375; 99285; A9270; J0131; J1170; J7120; Q9967; 81001; 87086

== ENCOUNTER 2023-08-22 08:00 | Outpatient (CLI) | payer BC ==
[2023-08-22 20:50] LABS: CHLAMYDIA TRACHOMATIS DNA NEGATIVE (NEGATIVE); NEISSERIA GONORRHOEAE DNA NEGATIVE (NEGATIVE)
[2023-08-22 21:45] LABS: BACTERIAL VAGINOSIS DNA NEGATIVE (NEGATIVE); CANDIDA GLABRATA DNA NEGATIVE (NEGATIVE); CANDIDA GROUP DNA NEGATIVE (NEGATIVE); CANDIDA KRUSEI DNA NEGATIVE (NEGATIVE); TRICHOMONAS VAGINALIS DNA NEGATIVE (NEGATIVE)
[2023-08-24 05:12] LABS: HSV-1 DNA Positive (Negative); HSV-2 DNA Negative (Negative)
== END 2023-08-22 23:59 | disposition home or self-care (01) ==
LOC: LAB.WC 08:00
PROVIDERS: ATTEND Nurse Practitioner
DX: K13.0 Diseases of lips (principal)
CPT/HCPCS: 81514; 87491; 87529; 87591; 87661

== ENCOUNTER 2023-08-22 10:51 | Outpatient (CLI) | payer BC ==
[2023-08-23 04:08] LABS: RPR Non Reactive (Non Reactive)
[2023-08-23 06:10] LABS: HSV 1 IGG TYPE SPEC 2.92 index (0.00-0.90); HSV 2 IGG TYPE SPEC 4.42 index (0.00-0.90)
== END 2023-08-22 10:52 | disposition home or self-care (01) ==
LOC: LAB 10:51
PROVIDERS: ATTEND Nurse Practitioner
DX: K13.0 Diseases of lips (principal)
CPT/HCPCS: 36415; 81514; 86592; 86695; 86696; 87491; 87529; 87591; 87661